=== PATIENT | male | born 1955 | race Caucasian/White ===

== ENCOUNTER → 2018-04-11 | Outpatient (CLI) | payer OTHER ==
[~2018-04-11] MED LIST: METF500C PO
== END | disposition home or self-care (01) ==
LOC: LAB SHORT 07:23 → PLD 07:23
DX: L82.1 Other seborrheic keratosis (principal)
CPT/HCPCS: 88305

== ENCOUNTER 2018-04-18 09:04 | Day surgery (SDC) | payer OTHER ==
[~2018-04-18] VITALS: Ht 190.5 cm; Wt 108.0 kg
--- NOTE | 2018-04-18 10:03 | NUR ---
Ambulatory in Day Surgery.PT STATES THAT HE IS NOT CLEANED OUT AND REQUESTS AN ENEMA. History, Chart, Medications and Allergies reviewed before start of procedure.Lungs clear T/O to Auscultation. Patient confirms NPO status and agrees with scheduled surgery. Patient States Post-Procedure ride home has been arranged.
--- NOTE | 2018-04-18 11:44 | NUR ---
04/18/18 1144 Matthew Garcia PATIENT DETERMINED TO BE ASA APPROPRIATE FOR PROPOFOL SEDATION PRIOR TO START OF PROCEDURE BY . 3-LEAD EKG REVIEWED WITH PHYSICIAN PRIOR TO START OF PROCEDURE.PATIENT CONFIRMS NPO STATUS AND AGREES WITH SCHEDULED PROCEDURE.History, Chart, Medications and Allergies reviewed before start of procedure.MONITOR INTACT WITH CONTINUOUS PULSE OXIMETRY AND INTERMITTENT BP.O2 VIA N/C INTACT THROUGHOUT SEDATION/PROCEDURE.
--- NOTE | 2018-04-18 12:55 | NUR ---
1235- UP TO DRESS. GAIT STEADY. NO C/O. [employer] CALLED TO ARRANGED RIDE HOME PER PATIENT. Discharge instructions reviewed with patient. Patient verbalizes understanding. Copy given to patient to take home.
== END 2018-04-18 12:52 | disposition home or self-care (01) ==
LOC: ORSCMMR 09:04 → ORD 10:30 → ORSCMMR 12:52
PROVIDERS: Internal Medicine Gastroenterology
PROC: 0DBH8ZX Excision of Cecum, Via Natural or Artificial Opening Endoscopic, Diagnostic (ICD-10-PCS; principal; 2018-04-18 10:30)
DX: Z12.11 Encounter for screening for malignant neoplasm of colon (principal); D12.0 Benign neoplasm of cecum; K64.4 Residual hemorrhoidal skin tags; K64.8 Other hemorrhoids; E11.9 Type 2 diabetes mellitus without complications; F41.9 Anxiety disorder, unspecified; Z87.891 Personal history of nicotine dependence; Z79.84 Long term (current) use of oral hypoglycemic drugs; Z79.899 Other long term (current) drug therapy
CPT/HCPCS: 82947; 88305; J7120

== ENCOUNTER → 2024-03-20 | Outpatient (CLI) | payer OTHER ==
[~2024-03-20] MED LIST changes: +AMOCLA875 PO; +AZIT250 PO
[2024-03-20 14:54] LABS: BASOPHILS ABSOLUTE AUTO 0.04 K/mm3 (0.00-0.23); BASOPHILS PERCENT AUTO 0 % (0-2); EOSINOPHILS PERCENT AUTO 1 % (0-6); Hematocrit 40.3 % (37.0-53.0); Hemoglobin 13.8 g/dL (13.5-17.5); IMMATURE GRAN ABSOLUTE AUTO 0.05 K/mm3 (0.00-0.10); IMMATURE GRAN PERCENT AUTO 1 % (0-1); LYMPHOCYTES ABSOLUTE AUTO 1.55 K/mm3 (0.84-5.20); LYMPHOCYTES PERCENT AUTO 15 % (21-46); MONOCYTES ABSOLUTE AUTO 0.64 K/mm3 (0.16-1.47); MONOCYTES PERCENT AUTO 6 % (4-13); Mean Corpuscular HGB 29.8 pg (26.0-34.0); Mean Corpuscular HGB Conc 34.2 g/dL (31.5-36.5); Mean Corpuscular Volume 87 fL (80-100); Mean Platelet Volume 8.8 fL (9.1-12.4); NEUTROPHILS ABSOLUTE AUTO 7.76 K/mm3 (1.96-9.15); NEUTROPHILS PERCENT AUTO 77 % (41-73); Platelet Count 320 K/mm3 (150-400); RDW Coefficient Variation 13.3 % (11.7-14.2); Red Blood Cell Count 4.63 M/mm3 (4.30-5.90); White Blood Cell Count 10.14 K/mm3 (4.00-11.30)
[2024-03-20 15:04] LABS: Bun/Creatinine Ratio 15.7 (12.0-20.0); Calcium, Blood 8.9 mg/dL (8.5-10.1); Creatinine, Blood 1.4 mg/dL (0.60-1.20); Potassium, Blood 3.9 mmol/L (3.5-5.5)
== END | disposition home or self-care (01) ==
LOC: LAB 14:50 → LAB SHORT 14:50
PROVIDERS: Physician Assistant Surgical
DX: R07.81 Pleurodynia (principal)
CPT/HCPCS: 80048; 84484; 85025; 85379

== ENCOUNTER 2024-04-13 02:48 | Emergency (ER) | payer OTHER ==
[~2024-04-13] VITALS: Ht 190.5 cm; Wt 104.3 kg
[2024-04-13] MEDS ORDERED: Ipratropium/Albuterol SulF 2.5-0.5MG/3 ML Amp INH ONE ×3 (03:00→05:10)
[2024-04-13 03:01] LABS: BASOPHILS ABSOLUTE AUTO 0.05 K/mm3 (0.00-0.23); BASOPHILS PERCENT AUTO 0 % (0-2); EOSINOPHILS ABSOLUTE AUTO 0.16 K/mm3 (0.00-0.68); EOSINOPHILS PERCENT AUTO 1 % (0-6); Hematocrit 39.3 % (37.0-53.0); Hemoglobin 13.5 g/dL (13.5-17.5); IMMATURE GRAN ABSOLUTE AUTO 0.01 K/mm3 (0.00-0.10); IMMATURE GRAN PERCENT AUTO 0 % (0-1); LYMPHOCYTES ABSOLUTE AUTO 1.76 K/mm3 (0.84-5.20); LYMPHOCYTES PERCENT AUTO 15 % (21-46); MONOCYTES ABSOLUTE AUTO 0.65 K/mm3 (0.16-1.47); MONOCYTES PERCENT AUTO 6 % (4-13); Mean Corpuscular HGB 29.8 pg (26.0-34.0); Mean Corpuscular HGB Conc 34.4 g/dL (31.5-36.5); Mean Corpuscular Volume 87 fL (80-100); Mean Platelet Volume 8.7 fL (9.1-12.4); NEUTROPHILS ABSOLUTE AUTO 8.86 K/mm3 (1.96-9.15); NEUTROPHILS PERCENT AUTO 77 % (41-73); Platelet Count 289 K/mm3 (150-400); RDW Coefficient Variation 13.5 % (11.7-14.2); RDW Standard Deviation 42.7 fL (35.1-46.3); Red Blood Cell Count 4.53 M/mm3 (4.30-5.90); White Blood Cell Count 11.49 K/mm3 (4.00-11.30)
[2024-04-13 03:13] LABS: Base Excess Venous 1.2 mmol/L; Bicarbonate Venous 24.2 mmol/L (24.0-30.0); PCO2 Venous 47.1 mmHg (38-42); pH Blood Venous 7.36 (7.34-7.37)
[2024-04-13 03:28] LABS: Bun/Creatinine Ratio 13.7 (12.0-20.0); Calcium, Blood 8.6 mg/dL (8.5-10.1); Creatinine, Blood 1.17 mg/dL (0.60-1.20); Potassium, Blood 3.9 mmol/L (3.5-5.5)
[2024-04-13] MEDS ORDERED: Doxycycline Hyclate 100 MG TAB PO ONE (04:05)
[2024-04-13] MEDS ORDERED: CefTRIAXone Sodium 2,000 MG in NS 100 ML IV ONE (04:05)
[2024-04-13] MEDS ORDERED: PRED20 PO (05:06)
[2024-04-13] MEDS ORDERED: AMOCLA875 PO (05:06)
[2024-04-13] MEDS ORDERED: DOXY100 PO (05:06)
[2024-04-13] MEDS ORDERED: ALBU90OI INH (05:09)
[2024-04-13 06:04] LABS: Influenza A, PCR NEGATIVE (NEGATIVE); Influenza B, PCR NEGATIVE (NEGATIVE); Resp Syncytial Virus, PCR NEGATIVE (NEGATIVE); SARS-Cov-2 (COVID-19) PCR, MMC NEGATIVE (NEGATIVE)
[2024-04-13 06:30] VITALS: BP 187/81
== END 2024-04-13 06:40 | disposition home or self-care (01) ==
LOC: ER 02:48
PROVIDERS: Emergency Medicine
DX: J18.9 Pneumonia, unspecified organism (principal); E11.9 Type 2 diabetes mellitus without complications; Z87.891 Personal history of nicotine dependence
CPT/HCPCS: 0241U; 71045; 80048; 82803; 85025; 93005; 93010; 94640; 94664; 96365; 99285-25; A9270; J0696

== ENCOUNTER 2024-05-01 10:56 | Emergency (ER) | payer OTHER ==
[~2024-05-01] VITALS: Ht 188 cm; Wt 90.7 kg
[~2024-05-01 10:56] MED LIST changes: +ALBU90OI INH; +DOXY100 PO; +PRED20 PO
[2024-05-01 11:51] LABS: BASOPHILS ABSOLUTE AUTO 0.05 K/mm3 (0.00-0.23); BASOPHILS PERCENT AUTO 1 % (0-2); EOSINOPHILS ABSOLUTE AUTO 0.12 K/mm3 (0.00-0.68); EOSINOPHILS PERCENT AUTO 2 % (0-6); Hematocrit 36.9 % (37.0-53.0); IMMATURE GRAN ABSOLUTE AUTO 0.02 K/mm3 (0.00-0.10); IMMATURE GRAN PERCENT AUTO 0 % (0-1); LYMPHOCYTES ABSOLUTE AUTO 1.27 K/mm3 (0.84-5.20); LYMPHOCYTES PERCENT AUTO 17 % (21-46); MONOCYTES PERCENT AUTO 8 % (4-13); Mean Corpuscular HGB 29.5 pg (26.0-34.0); Mean Corpuscular HGB Conc 35.2 g/dL (31.5-36.5); Mean Corpuscular Volume 84 fL (80-100); Mean Platelet Volume 8.6 fL (9.1-12.4); NEUTROPHILS ABSOLUTE AUTO 5.42 K/mm3 (1.96-9.15); NEUTROPHILS PERCENT AUTO 72 % (41-73); Platelet Count 325 K/mm3 (150-400); RDW Coefficient Variation 13.3 % (11.7-14.2); RDW Standard Deviation 40.8 fL (35.1-46.3); Red Blood Cell Count 4.41 M/mm3 (4.30-5.90); White Blood Cell Count 7.48 K/mm3 (4.00-11.30)
[2024-05-01 12:08] VITALS: BP 184/104
[2024-05-01 12:12] LABS: Albumin, Blood 3.4 g/dL (3.4-5.0); Albumin/Globulin Ratio 0.8 (0.8-1.8); Bilirubin, Total 0.8 mg/dL (0.1-1.0); Bun/Creatinine Ratio 15.5 (12.0-20.0); Calcium, Blood 9.2 mg/dL (8.5-10.1); Creatinine, Blood 1.1 mg/dL (0.60-1.20); Globulin, Blood 4.2 g/dL (2.2-4.0); Potassium, Blood 3.9 mmol/L (3.5-5.5); Total Protein, Blood 7.6 g/dL (6.4-8.2)
[2024-05-01] MEDS ORDERED: PredniSONE 20 MG Tab PO ONE (13:15)
[2024-05-01] MEDS ORDERED: Furosemide 10 MG / ML 2ML Vial IV ONE (13:15)
[2024-05-01 13:31] LABS: Influenza A, PCR NEGATIVE (NEGATIVE); Influenza B, PCR NEGATIVE (NEGATIVE); SARS-Cov-2 (COVID-19) PCR, MMC NEGATIVE (NEGATIVE)
[2024-05-01 13:36] LABS: Resp Syncytial Virus, PCR POSITIVE (NEGATIVE)
[2024-05-01] MEDS ORDERED: FURO20 PO (15:09)
[2024-05-01] MEDS ORDERED: KLOR-CON M1010 MEQ PO (15:09)
[2024-05-01] MEDS ORDERED: AIRSUPRA 90-810.7 GM INH (15:19)
== END 2024-05-01 15:34 | disposition home or self-care (01) ==
LOC: ER 10:56
PROVIDERS: Student in an Organized Health Care Education/Training Program
DX: B33.8 Other specified viral diseases (principal); B97.4 Respiratory syncytial virus as the cause of diseases classified elsewhere; I50.9 Heart failure, unspecified; E11.9 Type 2 diabetes mellitus without complications; Z87.891 Personal history of nicotine dependence; Z79.52 Long term (current) use of systemic steroids; Z79.899 Other long term (current) drug therapy
CPT/HCPCS: 0241U; 71046; 80053; 83880; 84145; 85025; 93005; 93010; 96374; 99285-25; J1940; J7512

== ENCOUNTER 2025-01-15 08:13 | Observation (INO) | payer OTHER ==
[~2025-01-15] VITALS: Ht 190.5 cm; Wt 103.8 kg
[~2025-01-15 08:13] MED LIST changes: +AIRSUPRA 90-810.7 GM INH; +AMLODIPINE BESY10 MG PO; +ASPI81CH PO; +ATROVENT HFA12.9 GM; +CARV6.25 PO; +FARXIGA10 MG PO; +FURO20 PO; +Heparin Sodium 1000 Units/ML 10ML MDV ONE; +IRBE150 PO; +KLOR-CON M1010 MEQ PO; +NS 1,000 ML IV ONE; +NS 250 ML IV ONE; +Nitroglycerin 2 MG/20 ML BTL ONE; +ROSUVASTATIN CA20 MG PO; +SPIR25 PO; +Verapamil HCL 2.5 MG/ML 2ML Injection ONE
[2025-01-15 08:39] VITALS: BP 204/81
[2025-01-15] MEDS ORDERED: AIRSUPRA 90-810.7 GM (08:48)
[2025-01-15 08:50] VITALS: BP 204/81
[2025-01-15 09:42] LABS: BASOPHILS ABSOLUTE AUTO 0.05 K/mm3 (0.00-0.23); BASOPHILS PERCENT AUTO 0 % (0-2); EOSINOPHILS ABSOLUTE AUTO 0.28 K/mm3 (0.00-0.68); EOSINOPHILS PERCENT AUTO 2 % (0-6); Hematocrit 39.6 % (37.0-53.0); Hemoglobin 13.8 g/dL (13.5-17.5); IMMATURE GRAN ABSOLUTE AUTO 0.03 K/mm3 (0.00-0.10); IMMATURE GRAN PERCENT AUTO 0 % (0-1); LYMPHOCYTES ABSOLUTE AUTO 1.75 K/mm3 (0.84-5.20); LYMPHOCYTES PERCENT AUTO 14 % (21-46); MONOCYTES ABSOLUTE AUTO 0.95 K/mm3 (0.16-1.47); MONOCYTES PERCENT AUTO 8 % (4-13); Mean Corpuscular HGB Conc 34.8 g/dL (31.5-36.5); Mean Corpuscular Volume 88 fL (80-100); NEUTROPHILS ABSOLUTE AUTO 9.63 K/mm3 (1.96-9.15); NEUTROPHILS PERCENT AUTO 76 % (41-73); NRBC ABSOLUTE 0.00 K/mm3 (0.00-0.02); NRBC Auto 0.0 /100 WBC (0.0-0.2); Platelet Count 326 K/mm3 (150-400); RDW Coefficient Variation 13.1 % (11.7-14.2); RDW Standard Deviation 42.0 fL (35.1-46.3)
[2025-01-15] MEDS ORDERED: Midazolam HCl 1MG / ML 2ML Vial ONE (09:52)
[2025-01-15] MEDS ORDERED: FentaNYL Citrate 50 MCG/ML 2 ML Injection ONE ×2 (09:52→10:39)
[2025-01-15] MEDS ORDERED: NS 1,000 ML IV ONE (09:52)
[2025-01-15 09:58] LABS: Prothrombin Time Results 11.1 Sec (9.7-11.5)
[2025-01-15 10:01] LABS: Anion Gap 9.0 mmol/L (3-11); Blood Urea Nitrogen 45.0 mg/dL (8-24); CO2, Blood 22.0 mmol/L (21-32); Calcium, Blood 8.8 mg/dL (8.5-10.1); Chloride, Blood 106.0 mmol/L (98-108); Creatinine, Blood 1.87 mg/dL (0.60-1.20); Glucose, Blood 202.0 mg/dL (70-99); Potassium, Blood 4.5 mmol/L (3.5-5.5); Sodium, Blood 132.0 mmol/L (136-145)
[2025-01-15] MEDS ORDERED: HydrALAZINE HCl 20 MG / ML 1ML Vial ONE (10:16)
[2025-01-15] MEDS ORDERED: Heparin Sodium 1000 Units/ML 10ML MDV ONE ×2 (10:34→11:15)
[2025-01-15] MEDS ORDERED: HydrALAZINE HCl 20 MG / ML 1ML Vial IV PRN (11:25)
[2025-01-15] MEDS ORDERED: NS 1,000 ML IV SCH (11:30)
[2025-01-15 11:48] VITALS: BP 149/109
[2025-01-15] MEDS ORDERED: ALBUTEROL INH PRN (12:20)
[2025-01-15] MEDS ORDERED: BUDESONIDE INH PRN (12:20)
[2025-01-15 13:06] VITALS: BP 172/71
[2025-01-15 15:32] VITALS: BP 116/83
[2025-01-15] MEDS ORDERED: ZYRTEC10 M2 PO (17:21)
--- NOTE | 2025-01-15 17:31 | NUR ---
SHIFT SUMMARY. EXTENDED RECOVERY PATIENT. AOX4, PLEASANT, COOPERATIVE, ABLE TO MAKE NEEDS KNOWN. RIGHT WRIST ANGIO SITE FULLY RECOVERED W/TEGADERM AND ARM BOARD IN PLACE. DRESSING C/D/I. NO COMPLAINTS OF PAIN/TENDERNESS. VITALS HAVE REMAIND STABLE. ELEVATED BP THIS AFTERNOON THAT HAS BEEN MANAGED VIA EMAR. RUNNING SINUS IN THE 70s-80s RANGE ON TELE. WAS REQUESTING TO LEAVE SHORTLY AFTER ARRIVAL BUT AFTER CONVERSATION WITH DR. BADILLO HAS BEEN AGREEABLE TO STAYING OVERNIGHT. WAS ABLE TO TAKE SHOWER THIS EVENING. EATING DINNER AT THIS TIME. BED LOCKD IN LOWEST POSITION. CALL LIGHT LEFT WITHINREACH. CONTINUING TO MONITOR.
[2025-01-16 00:04] VITALS: BP 129/62
[2025-01-16 04:27] LABS: Hematocrit 40.5 % (37.0-53.0); Hemoglobin 14.0 g/dL (13.5-17.5); Mean Corpuscular HGB Conc 34.6 g/dL (31.5-36.5); Mean Corpuscular Volume 88 fL (80-100); NRBC ABSOLUTE 0.00 K/mm3 (0.00-0.02); NRBC Auto 0.0 /100 WBC (0.0-0.2); Platelet Count 319 K/mm3 (150-400); RDW Coefficient Variation 13.1 % (11.7-14.2); RDW Standard Deviation 42.1 fL (35.1-46.3)
[2025-01-16 04:34] VITALS: BP 139/66
[2025-01-16 05:04] LABS: Anion Gap 7.0 mmol/L (3-11); Blood Urea Nitrogen 39.0 mg/dL (8-24); CO2, Blood 21.0 mmol/L (21-32); Calcium, Blood 8.7 mg/dL (8.5-10.1); Chloride, Blood 108.0 mmol/L (98-108); Creatinine, Blood 1.62 mg/dL (0.60-1.20); Glucose, Blood 165.0 mg/dL (70-99); LDL Direct Measurement 115.0 mg/dL (0-130); Potassium, Blood 4.5 mmol/L (3.5-5.5); Sodium, Blood 131.0 mmol/L (136-145)
--- NOTE | 2025-01-16 05:32 | NUR ---
SHIFT SUMMARY PATIENT A/OX4. NO SIGNIFICANT EVENTS OVERNIGHT. PATIENT MAINTAINED ARMBOARD ON RIGHT WRIST/FOREARM. RIGHT RADIAL ANGIO SITE WITH TEGADERM IN PLACE. NO DRAINAGE OR HEMATOMA NOTED. CMS INTACT. AM EKG DONE PER ORDER. PATIENT DENIED CP, PRESSURE, OR SOB. VSS. SR ON MONITOR WITH R BBB. KAREN PO INTAKE WELL. GOOD URINE OUTPUT. PATIENT ANXIOUS TO DISCHARGE HOME THIS MORNING. HE HAS 3 DOGS AT HOME ALONE AND IS WORRIED ABOUT THEM. DISCUSSED AM ROUNDS AND POSSIBLE LATE MORNING/EARLY AFTERNOON DISCHARGE. WILL NEED [facility] RIDE HOME. ABLE TO MAKE NEEDS KNOWN WITH CALL LIGHT. BED IN LOWEST POSITION. PLAN OF CARE ONGOING.
[2025-01-16 08:06] VITALS: BP 162/64
[2025-01-16] MEDS ORDERED: CLOP75 PO (09:05)
[2025-01-16] MEDS ORDERED: EZET10 PO (09:06)
--- NOTE | 2025-01-16 09:24 | NUR ---
DISCHARGE UPDATE DISCHARGE PACKET GONE OVER WITH PT AT 0905. PT DISCHARGED AT 0920 VIA WHEELCHAIR AND ON RA. PT ABLE TO TRANSFER SELF TO AND FROM WHEELCHAIR WITH NO ASSISTANCE, TOLERATED WELL. DISCHARGE PACKET AND PERSONAL BELONGINGS WITH PT AT TIME OF DISCHARGE. PT RIGHT RADIAL SITE WITH TEGADERM IN PLACE, SITE C/D/I.
== END 2025-01-16 09:18 | disposition home or self-care (01) ==
LOC: MHTC 08:13 → PCU 09:00 → MHTC 09:00 → PCU 11:45
PROVIDERS: ADMIT Internal Medicine Cardiovascular Disease
DX: I25.5 Ischemic cardiomyopathy (principal); I25.118 Atherosclerotic heart disease of native coronary artery with other forms of angina pectoris; E78.00 Pure hypercholesterolemia, unspecified; I13.0 Hypertensive heart and chronic kidney disease with heart failure and stage 1 through stage 4 chronic kidney disease, or unspecified chronic kidney disease; E11.22 Type 2 diabetes mellitus with diabetic chronic kidney disease; N18.9 Chronic kidney disease, unspecified; I50.20 Unspecified systolic (congestive) heart failure; Z87.891 Personal history of nicotine dependence; Z79.82 Long term (current) use of aspirin; Z79.84 Long term (current) use of oral hypoglycemic drugs; Z79.899 Other long term (current) drug therapy
CPT/HCPCS: 36415; 76937; 80048; 83721; 85025; 85027; 85347; 85610; 93005; 93010; 93308; 93321; 93454; 96374; 99152; 99153; A9270; C1725; C1769; C1874; C1887; C1894; C9600; G0378; J0360; J1644; J2250; J3010; J7030; J7050; Q9967